=== PATIENT | female | born 1975 | race Caucasian/White ===

== ENCOUNTER → 2018-05-20 | Outpatient (CLI) | payer BC | LOC: RAD 15:26 | PROVIDERS: ATTEND Internal Medicine | DX: Z12.31 Encounter for screening mammogram for malignant neoplasm of breast (principal) | CPT/HCPCS: 77067 ==

== ENCOUNTER → 2019-06-28 | Outpatient (CLI) | payer BC ==
--- NOTE | 2019-06-28 12:16 | Diagnostic Imaging Report ---
EXAMINATION: Digital mammogram bilateral screening with CAD. INDICATION: Screening. COMPARISON: This study was compared to the prior exams of 05/20/2018, 05/11/2017, and 12/27/2015. PERSONAL HISTORY: At this time, there are no current complaints. FINDINGS: The fibroglandular tissue in both breasts is heterogeneously dense. This does limit the sensitivity of this exam. Overall, there does not appear to have been any significant change when compared to the prior study. No primary or secondary sign of malignancy is noted. IMPRESSION: There is no radiographic evidence for malignancy. ACR BI-RADS Category 1: Negative. Result letter will be mailed to the patient. Note: At least 10% of breast cancer is not imaged by mammography. Dictated by: Dictated on workstation # [id number]
== END ==
LOC: RAD 09:43
PROVIDERS: ATTEND Internal Medicine
DX: Z12.31 Encounter for screening mammogram for malignant neoplasm of breast (principal)
CPT/HCPCS: 77063; 77067

== ENCOUNTER → 2020-06-28 | Outpatient (CLI) | payer BC ==
--- NOTE | 2020-07-01 09:09 | Diagnostic Imaging Report ---
INDICATION: Routine screening. COMPARISON: 06/28/2019 and 05/20/2018. TECHNIQUE: 2D and 3D bilateral screening mammography was performed with CAD. FINDINGS: Both breasts are heterogeneously dense, limiting the sensitivity of mammography. Benign-appearing nodules in the lateral right breast appear stable. There is a density with calcifications in the medial aspect of the right breast, best seen on the CC view. This appears more prominent than on prior exams. This is likely superiorly located based off of the tomographic images. There are benign calcifications present. The left breast is unremarkable. The axillae are unremarkable. IMPRESSION: Right breast density. Additional views are recommended for further evaluation. ACR BI-RADS Category 0: Incomplete. (Needs additional imaging evaluation). Result letter will be mailed to the patient. Note: At least 10% of breast cancer is not imaged by mammography. Dictated by: Dictated on workstation # [id number]
== END ==
LOC: RAD 15:15
PROVIDERS: ATTEND Internal Medicine
DX: Z12.31 Encounter for screening mammogram for malignant neoplasm of breast (principal)
CPT/HCPCS: 77063; 77067

== ENCOUNTER → 2020-07-04 | Outpatient (CLI) | payer BC ==
--- NOTE | 2020-07-04 09:43 | Diagnostic Imaging Report ---
INDICATION: Right breast density. Patient presents for additional views. Correlation is made with recent screening study from 06/28/2020. Unilateral right 2-D and 3-D diagnostic mammography was performed with CAD. This included spot compression CC, rolled CC, spot compression ML and conventional 90 degrees lateral views. Additional views show persistent irregular density with questionable architectural distortion in the upper and inner aspect of the right breast approximately 9 to 10 cm from the nipple. There are some associated microcalcifications. No other abnormality is seen. IMPRESSION: BI-RADS Category 0 Findings suggestive of architectural distortion and microcalcifications in the upper inner right breast 9 to 10 cm from the nipple. Further evaluation with ultrasound is recommended. ACR BI-RADS Category 0: Incomplete. (Needs additional imaging evaluation). Result letter will be mailed to the patient. Note: At least 10% of breast cancer is not imaged by mammography. Dictated by: Dictated on workstation # [id number]
--- NOTE | 2020-07-04 10:46 | Diagnostic Imaging Report ---
INDICATION: Right breast architectural distortion. This study is performed for further evaluation. COMPARISON: Correlation is made with the diagnostic study from earlier this same day as well as the screening mammogram from 06/28/2020. FINDINGS: Sonographic interrogation of the upper and inner aspect of the right breast was performed. There is an irregular hypoechoic nodule at the 2 o'clock location 10 cm from the nipple measuring 7 mm x 6 mm x 6 mm. This may account for the area of architectural distortion noted mammographically. No other abnormalities are seen. IMPRESSION: Irregular hypoechoic nodule at the 2 o'clock location of the right breast 10 cm from the nipple corresponding with the mammographic architectural distortion. Tissue sampling is recommended. This would be amenable to ultrasound-guided core biopsy. ACR BI-RADS Category 4: Suspicious abnormality. Result letter will be mailed to the patient. Note: At least 10% of breast cancer is not imaged by mammography. Dictated by: Dictated on workstation # [id number]
== END ==
LOC: RAD 09:07
PROVIDERS: ATTEND Internal Medicine
DX: N63.10 Unspecified lump in the right breast, unspecified quadrant (principal)
CPT/HCPCS: 76642; 77065; G0279

== ENCOUNTER → 2020-07-05 | Outpatient (CLI) | payer BC ==
[~2020-07-05] VITALS: Ht 175.3 cm; Wt 118.2 kg
[~2020-07-05] MED LIST: LIDOCAINE 1% INJ 20 ML 20 ML VIAL INJ ONE; LIDOCAINE 1% INJ 20 ML 20 ML VIAL ONE
--- NOTE | 2020-07-05 09:51 | Diagnostic Imaging Report ---
INDICATION: Right breast mass. PROCEDURE: The patient presents for ultrasound-guided core biopsy. The patient was brought to the sonographic suite and placed on the table in the supine position. Ultrasound imaging of the right breast was performed to evaluate appropriate entry site. The right breast was then prepped and draped in the usual sterile fashion. A small amount of 1% lidocaine was utilized for local anesthesia. A 13-gauge handheld mammotome vacuum-assisted device was advanced and placed with its biopsy chamber along the undersurface of the hypoechoic nodule at the 2:00 location of the right breast, 10 cm from the nipple. Four core biopsies were obtained with the vacuum-assisted device. A marker clip was then deployed. Hemostasis was obtained using manual compression. Follow-up mammogram was performed to evaluate clip placement. The patient tolerated the procedure well and left the department in stable condition. IMPRESSION: Successful ultrasound-guided core biopsy of right breast nodule at the 2:00 location, 10 cm from the nipple with the handheld mammotome vacuum-assisted device. Pathology results are currently pending. Dictated by: Dictated on workstation # [id number]
--- NOTE | 2020-07-05 17:30 | Diagnostic Imaging Report ---
INDICATION: Right breast nodule status post ultrasound-guided biopsy. Unilateral right 2-D CC and ML mammography was performed after patient underwent ultrasound-guided biopsy. There is a clip in the upper and inner aspect of the right breast mid depth corresponding to the irregular density noted mammographically. IMPRESSION: Satisfactory clip location in the upper inner right breast, status post ultrasound-guided core biopsy. Dictated by: Dictated on workstation # [id number]
== END ==
LOC: RAD 08:17
PROVIDERS: ATTEND Internal Medicine
DX: N63.12 Unspecified lump in the right breast, upper inner quadrant (principal)
CPT/HCPCS: 19083; 77065; A4648; G0279

== ENCOUNTER → 2020-07-17 | Outpatient (CLI) | payer BC ==
[~2020-07-17] VITALS: Ht 175.3 cm; Wt 122.7 kg
[~2020-07-17] MED LIST changes: -LIDOCAINE 1% INJ 20 ML 20 ML VIAL ONE
[2020-07-17 11:28] VITALS: BP 127/78
[2020-07-17 11:32] VITALS: BP 126/80
--- NOTE | 2020-07-17 13:50 | Diagnostic Imaging Report ---
INDICATION: Right breast architectural distortion. Patient presents for stereotactic biopsy. DETAILS OF THE PROCEDURE: The patient was brought to the stereotactic suite and placed in a chair in the sitting upright position. The right breast was positioned craniocaudal. The superior right breast was prepped and draped in the usual sterile fashion. The area of architectural distortion was stereotactically targeted. An 8 gauge needle was advanced from a CC approach and placed with its tip per stereotactic coordinates. A total of four core biopsies was obtained with the vacuum-assisted device. All images were viewed on a dedicated workstation. A marker clip was then deployed. Hemostasis was obtained using manual compression. Followup 2D mammography shows marker clips in the medial and superior right breast. IMPRESSION: Right breast stereotactic biopsy of an area of architectural distortion in the upper inner right breast utilizing a vacuum-assisted device. Pathology results are currently pending. Dictated by: Dictated on workstation # [id number]
== END ==
LOC: RAD 10:28
PROVIDERS: ATTEND Internal Medicine
DX: N63.10 Unspecified lump in the right breast, unspecified quadrant (principal)
CPT/HCPCS: 19081; A4648

== ENCOUNTER → 2021-01-20 | Outpatient (CLI) | payer BC ==
--- NOTE | 2021-01-20 13:44 | Diagnostic Imaging Report ---
EXAMINATION: Unilateral diagnostic right mammogram with CAD. INDICATION: Post biopsy. FINDINGS: The screening mammogram performed on 06/28/2020 noted a density with associated calcifications in the medial aspect of the right breast. The diagnostic mammogram performed on 07/04/2020 suggested architectural distortion and microcalcifications in the upper aspect of the right breast. The ultrasound exam performed on the same day also noted an irregular hypoechoic nodule in the 2 o'clock position. This was felt to correspond to the mammographic architectural distortion. This area was subsequently biopsied on 07/05/2020 and a diagnosis of intraductal papilloma was established. There was no evidence for malignancy. On this exam, there are are surgical clips in the biopsy site. The microcalcifications in this area seen previously are again evident and not significantly changed. There is no new mass visualized in this region. The fibroglandular tissue in the right breast is heterogeneously dense. This does limit the sensitivity of this exam. Overall, there has been no significant change since the previous study. There is no primary or secondary sign of malignancy noted. IMPRESSION: 1. There are post biopsy changes involving the right breast. There is no evidence for malignancy. 2. It may prove worthwhile to have a diagnostic mammogram of the right breast in 6 months for continued evaluation. The patient could have her screening mammogram of the left breast performed at that time as well. ACR BI-RADS Category 3: Probably benign findings. Result letter will be mailed to the patient. Note: At least 10% of breast cancer is not imaged by mammography. Dictated by: Dictated on workstation # [id number]
== END ==
LOC: RAD 12:45
PROVIDERS: ATTEND Internal Medicine
DX: R92.8 Other abnormal and inconclusive findings on diagnostic imaging of breast (principal); Z98.890 Other specified postprocedural states
CPT/HCPCS: 77065; G0279

== ENCOUNTER → 2021-04-30 | Outpatient (CLI) | payer BC ==
--- NOTE | 2021-04-30 17:22 | Diagnostic Imaging Report ---
INDICATION: Neck pain which radiates into the upper extremities. EXAMINATION: AP, lateral and odontoid views of cervical spine were obtained. FINDINGS: There is loss of cervical lordosis. Vertebral body heights are maintained. There is sclerosis about the C2-C3 facet joints. Prevertebral soft tissues are unremarkable. There is no lytic or sclerotic lesion. No fracture is seen. IMPRESSION: 1. Mild degenerative facet arthropathy in the upper cervical spine. Loss of cervical lordosis may be secondary to muscle spasm or positioning. 2. Otherwise, no acute abnormality is seen. Dictated by: Dictated on workstation # [id number]
== END ==
LOC: RAD 16:48
PROVIDERS: ATTEND Internal Medicine
DX: M47.812 Spondylosis without myelopathy or radiculopathy, cervical region (principal); M43.8X2 Other specified deforming dorsopathies, cervical region
CPT/HCPCS: 72040

== ENCOUNTER 2021-05-20 13:06 | Outpatient (RCR) | payer BC | END 2021-05-22 | disposition home or self-care (01) | PROVIDERS: ATTEND Internal Medicine | DX: M54.2 Cervicalgia (principal); I10 Essential (primary) hypertension ==

== ENCOUNTER 2021-05-27 13:41 | Outpatient (RCR) | payer BC | END 2021-06-16 11:00 | disposition home or self-care (01) | PROVIDERS: ATTEND Internal Medicine | DX: M54.2 Cervicalgia (principal); I10 Essential (primary) hypertension ==

== ENCOUNTER → 2021-06-30 | Outpatient (CLI) | payer BC ==
--- NOTE | 2021-07-01 08:31 | Diagnostic Imaging Report ---
INDICATION: 3-D bilateral screening mammogram with CAD. CAD is utilized. The current study was also evaluated with a Computer Aided Detection (CAD) system. This study was compared to the prior exams as far back as 05/11/2017. At this time there are no current complaints. The fibroglandular tissue in both breasts is heterogeneously dense. This does limit the sensitivity of this exam. As noted on the prior study there is architectural distortion with associated microcalcifications in the 3 o'clock position of the right breast at middle depth. Surgical clips are also again seen in this area. These findings seems similar to the prior exam. The overall appearance of breasts has not changed significantly otherwise. There is no primary or secondary sign of malignancy noted. IMPRESSION: There is no evidence of malignancy. ACR BI-RADS Category 1: Negative. Result letter will be mailed to the patient. Note: At least 10% of breast cancer is not imaged by mammography. Dictated by: Dictated on workstation # [id number]
== END ==
LOC: RAD 15:45
PROVIDERS: ATTEND Internal Medicine
DX: Z12.31 Encounter for screening mammogram for malignant neoplasm of breast (principal)
CPT/HCPCS: 77063; 77067

== ENCOUNTER → 2022-07-02 | Outpatient (CLI) | payer BC ==
--- NOTE | 2022-07-02 09:38 | Diagnostic Imaging Report ---
INDICATION: Routine screening. Comparison is made with prior mammogram from 06/30/2021 and 06/28/2020. 2-D and 3-D bilateral screening mammography was performed with CAD. CAD is utilized. The current study was also evaluated with a Computer Aided Detection (CAD) system. Both breasts are heterogeneously dense, limiting the sensitivity of mammography. There are postbiopsy changes in the medial aspect right breast. Area of architectural distortion in the medial right breast is again noted. There appear to be increasing calcifications at the area of architectural distortion. Additional views would be recommended. There is benign nodule in the outer right breast which appears stable. No new mass is detected. Axillae are unremarkable. IMPRESSION: BI-RADS Category 0 There appear to be some increasing calcifications at the area of architectural distortion in the medial right breast. Additional views are recommended. ACR BI-RADS Category 0: Incomplete. (Needs additional imaging evaluation). Result letter will be mailed to the patient. Note: At least 10% of breast cancer is not imaged by mammography. Dictated by: Dictated on workstation # [id number]
== END ==
LOC: RAD 07:21
PROVIDERS: ATTEND Internal Medicine
DX: Z12.31 Encounter for screening mammogram for malignant neoplasm of breast (principal)
CPT/HCPCS: 77063; 77067

== ENCOUNTER → 2022-07-13 | Outpatient (CLI) | payer BC ==
--- NOTE | 2022-07-13 14:49 | Diagnostic Imaging Report ---
INDICATION: Right breast calcifications and architectural distortion. The patient presents for additional views. Correlation is made with screening study from 07/02/2022 as well as prior mammograms from 06/30/2021 and 01/20/2021. 2-D and 3-D unilateral right diagnostic mammography was performed. This included magnification CC and ML views of the right breast as well as conventional 90 degrees lateral views. CAD is utilized. The current study was also evaluated with a Computer Aided Detection (CAD) system. There are numerous indeterminate microcalcifications in the medial aspect of the right breast near the previously noted areas of biopsy and architectural distortion. Calcifications appear to be increased when compared with last years mammogram. These are superiorly located on the MLO views. No discrete mass is identified. IMPRESSION: BI-RADS Category 4 Indeterminate microcalcifications in the upper medial right breast just posterior to the area of prior biopsy and architectural distortion. Tissue sampling is recommended. These would be amenable to stereotactic biopsy approach. ACR BI-RADS Category 4: Suspicious abnormality. Result letter will be mailed to the patient. Note: At least 10% of breast cancer is not imaged by mammography. Dictated by: Dictated on workstation # [id number]
== END ==
LOC: RAD 12:24
PROVIDERS: ATTEND Internal Medicine
DX: N63.10 Unspecified lump in the right breast, unspecified quadrant (principal)
CPT/HCPCS: 77065; G0279

== ENCOUNTER → 2022-07-27 | Outpatient (CLI) | payer BC ==
[~2022-07-27] VITALS: Ht 175.3 cm; Wt 122.7 kg
[~2022-07-27] MED LIST changes: +LIDOCAINE 1% INJ 10 ML VIAL INJ ONE; +LIDOCAINE 1% INJ 10 ML VIAL ONE; -LIDOCAINE 1% INJ 20 ML 20 ML VIAL INJ ONE
--- NOTE | 2022-07-27 16:41 | Diagnostic Imaging Report ---
INDICATION: Right breast calcifications. PROCEDURE: The patient presents for stereotactic biopsy. The patient was brought to the mammographic suite and placed in a chair in a sitting upright position. The right breast was positioned craniocaudal. The cluster of microcalcifications in the medial aspect of the right breast were stereotactically targeted. The superior right breast was then prepped and draped in the usual sterile fashion. A small amount of 1% lidocaine was utilized for local anesthesia. All images were viewed on a dedicated workstation. The 8 gauge stereotactic needle was advanced into the right breast from a craniocaudal approach and placed per stereotactic coordinates. A total of 4 core biopsies were obtained with the vacuum-assisted device. A specimen radiograph was obtained demonstrating numerous microcalcifications in all 4 samples. A marker clip was then deployed. The needle was removed and hemostasis was obtained. 2-D CC and ML mammography was obtained to evaluate clip placement. Clip appears to be a satisfactory position in the upper medial right breast. The patient tolerated the procedure well and left the department in stable condition. IMPRESSION: Successful stereotactic biopsy of the microcalcifications in the upper medial right breast utilizing the vacuum-assisted device. Pathology results are currently pending. Dictated by: Dictated on workstation # [id number]
== END ==
LOC: RAD 12:45
PROVIDERS: ATTEND Internal Medicine
DX: N63.12 Unspecified lump in the right breast, upper inner quadrant (principal)
CPT/HCPCS: 19081; A4648